=== PATIENT | female | born 1975 | race Two or more races ===

== ENCOUNTER 2024-04-25 14:06 | Inpatient (IN) | payer MEDICAID, OTHER ==
[~2024-04-25] VITALS: Ht 160 cm; Wt 67.0 kg
[2024-04-25] MEDS ORDERED: DiphenhydrAMINE HCL 50 MG/ML VIAL IM ONE ×2 (16:30→17:15)
[2024-04-25] MEDS ORDERED: LORazepam 2 MG/ML VIAL IM ONE ×2 (16:30→17:15)
[2024-04-25] MEDS ORDERED: HALOPERIDOL LACTATE 5 MG/ML VIAL IM ONE (16:30)
[2024-04-25] MEDS ORDERED: ChlorproMAZINE HCL 50 MG/2 ML AMP IM ONE (17:15)
[2024-04-25] MEDS ORDERED: LORazepam 2 MG TABLET PO PRN (17:15)
[2024-04-25] MEDS ORDERED: ZOLPIDEM TARTRATE 5 MG TABLET PO PRN (17:15)
[2024-04-25 19:27] LABS: COVID AG,FIA SOURCE NASAL SWAB
[2024-04-25 19:49] LABS: SARS-COV2 (COVID) ANTIGEN,FIA Negative (Negative)
[2024-04-25] MEDS: GABAPENTIN 400 MG CAPSULE PO SCH (21:00)
[2024-04-25] MEDS: DIVALPROEX SODIUM 250 MG ER TABLET PO SCH (21:00)
[2024-04-25] MEDS: MELATONIN 5 MG TABLET PO SCH (21:00)
[2024-04-25] MEDS: OLANZapine 10 MG TABLET PO SCH (21:00)
[2024-04-25] MEDS: TraZODone HCL 100 MG TABLET PO SCH (21:00)
[2024-04-25 23:03] VITALS: BP 122/79; PULSE 54; RESP 18; TEMP 97.8; O2SAT 100
[2024-04-26 09:50] VITALS: RESP 20
[2024-04-26] MEDS ORDERED: BENZOCAINE/MENTHOL LOZENGE PO PRN (16:00)
[2024-04-26] MEDS ORDERED: CloNIDine HCL 0.1 MG TABLET PO PRN (16:00)
[2024-04-26] MEDS ORDERED: ALBUTEROL SULFATE HFA 90 MCG/PUFF 8 GM INHALER IH PRN (16:00)
[2024-04-26] MEDS ORDERED: MAGNESIUM HYDROXIDE SUSPENSION 30 ML UDCUP PO PRN (16:00)
[2024-04-26] MEDS ORDERED: OMEPRAZOLE 20 MG CAPSULE PO PRN (16:00)
[2024-04-26] MEDS ORDERED: DOCUSATE SODIUM 100 MG CAPSULE PO PRN (16:00)
[2024-04-26] MEDS ORDERED: MAG HYDROX/ALUMINUM HYD/SIMETH ES 30 ML SUSPENSION UDCUP PO PRN (16:00)
[2024-04-26] MEDS ORDERED: IBUPROFEN 600 MG TABLET PO PRN (16:00)
[2024-04-26] MEDS ORDERED: PETROLATUM,WHITE 28 GM JELLY TP PRN (16:00)
[2024-04-26] MEDS ORDERED: BACITRACIN 28 GM OINTMENT TP PRN (16:00)
[2024-04-26] MEDS ORDERED: ONDANSETRON HCL 4 MG TABLET PO PRN (16:00)
[2024-04-26] MEDS ORDERED: LOPERAMIDE HCL 2 MG CAPSULE PO PRN (16:00)
[2024-04-26 21:27] VITALS: RESP 18; TEMP 97.1
[2024-04-27 08:45] VITALS: BP 117/67; PULSE 87; RESP 18; TEMP 97; O2SAT 98
[2024-04-27 21:27] VITALS: RESP 18
[2024-04-28 08:07] VITALS: BP 115/70; PULSE 74; RESP 18; TEMP 97.4; O2SAT 100
[2024-04-28 09:27] LABS: BASOPHILS % (AUTO) 0.7 % (0.0-2.0); EOSINOPHILS % (AUTO) 5.9 % (1.0-6.0); HEMATOCRIT 39.9 % (36-46); HEMOGLOBIN 12.8 g/dL (12.0-16.0); LYMPHOCYTES # (AUTO) 1.4 K/uL (1.0-4.8); LYMPHOCYTES % (AUTO) 35.6 % (22.0-44.0); MEAN CORPUSCULAR HEMOGLOBIN 26.1 pg (26.0-34.0); MEAN CORPUSCULAR VOLUME 82 fL (80-100); MONOCYTES # (AUTO) 0.6 K/uL (0.1-1.0); MONOCYTES % (AUTO) 16.3 % (2.0-9.0); NEUTROPHILS # (AUTO) 1.6 K/uL (1.8-7.7); NEUTROPHILS % (AUTO) 41.5 % (40.0-70.0); PLATELET COUNT (AUTO) 198 K/uL (150-450); RED BLOOD CELL COUNT(AUTO) 4.89 MIL/uL (4.00-5.20); RED CELL DISTRIBUTION WIDTH 16.4 % (11.5-14.5); WHITE BLOOD COUNT (AUTO) 3.8 K/uL (4.5-11.0)
[2024-04-28 09:36] LABS: ANION GAP 7 mmol/L (8-16); CALCIUM, TOTAL 9.2 mg/dL (8.8-10.5); CARBON DIOXIDE 30 mmol/L (22-29); CHLORIDE 103 mmol/L (98-107); CREATININE 0.74 mg/dL (0.60-1.30); GLOMERULAR FILTR. RATE CALC > 60 mL/min (>60); GLUCOSE,RANDOM 89 mg/dL (70-110); POTASSIUM 4.2 mmol/L (3.5-5.1); SODIUM SERUM 140 mmol/L (136-145); UREA NITROGEN, BLOOD 17 mg/dL (7-18)
[2024-04-28 09:38] LABS: ALCOHOL, BLOOD (SERUM) < 3 mg/dL (0-10)
[2024-04-28 21:09] VITALS: BP 127/73; PULSE 80; RESP 18; TEMP 97.9; O2SAT 80
[2024-04-29 09:21] VITALS: BP 106/63; PULSE 69; RESP 17; TEMP 96.9; O2SAT 98
[2024-04-29] MEDS ORDERED: BREXPIPRAZOLE 0.25 MG TABLET PO PRN (14:00)
[2024-04-29] MEDS: BREXPIPRAZOLE 0.25 MG TABLET PO SCH ×2 (17:34→20:22)
[2024-04-29 20:18] VITALS: BP 111/53; PULSE 83; RESP 18; TEMP 97.6; O2SAT 98
[2024-04-29] MEDS: VALPROIC ACID 250 MG/5 ML SOLUTION UDCUP PO SCH (20:24)
[2024-04-30 08:55] VITALS: BP 108/70; PULSE 73; RESP 17; TEMP 97.3; O2SAT 100
[2024-04-30 21:31] VITALS: BP 122/70; PULSE 78; RESP 18; TEMP 98.8
[2024-05-01 08:05] VITALS: BP 121/75; PULSE 64; RESP 18; TEMP 97.7; O2SAT 98
[2024-05-01 20:01] VITALS: BP 124/76; PULSE 80; RESP 18; TEMP 97.9; O2SAT 97
[2024-05-02 09:00] VITALS: BP 116/69; PULSE 84; RESP 18; TEMP 98.3; O2SAT 100
[2024-05-02] MEDS ORDERED: VALP250S23 PO (15:05)
[2024-05-02] MEDS ORDERED: GABA-1201 PO (15:05)
[2024-05-02] MEDS ORDERED: BREX0.25 PO (15:05)
[2024-05-02] MEDS ORDERED: TRAZ-257 PO (15:05)
[2024-05-02] MEDS ORDERED: MELA5TAB40 PO (15:05)
[2024-05-02 22:38] VITALS: BP 120/71; PULSE 90; RESP 19; TEMP 98.3; O2SAT 97
[2024-05-03 10:47] VITALS: BP 112/68; PULSE 83; RESP 18; TEMP 98.1; O2SAT 98
[2024-05-03] MEDS: VALPROIC ACID 250 MG/5 ML SOLUTION UDCUP PO SCH (11:47)
== END 2024-05-03 19:34 | DRG 750 ==
LOC: EMS 14:06 → 3EI 22:17
PROVIDERS: ADMIT Psychiatry & Neurology Psychiatry; ATTEND Psychiatry & Neurology Psychiatry
PROC: GZHZZZZ Group Psychotherapy (ICD-10-PCS; principal; 2024-04-26)
PROC: GZ51ZZZ Individual Psychotherapy, Behavioral (ICD-10-PCS; 2024-04-26)
DX: F25.0 Schizoaffective disorder, bipolar type (principal); Z91.148 Patient's other noncompliance with medication regimen for other reason; F41.9 Anxiety disorder, unspecified; Z20.822 Contact with and (suspected) exposure to COVID-19; G47.00 Insomnia, unspecified; I10 Essential (primary) hypertension; K59.00 Constipation, unspecified; Z59.00 Homelessness unspecified
CPT/HCPCS: 80048; 80164; 85025; 87081; 99285; G0480; Q9967